=== PATIENT | male | born 1985 | race Caucasian/White ===

== ENCOUNTER → 2022-12-23 14:39 | Outpatient (CLI) | payer OTHER, SELFPAY ==
[2022-12-23 19:34] LABS: Add Manual Diff / Slide Review NO; Basophils Absolute Auto 0 /uL (0-100); Basophils Percent Auto 0.1 % (0-2); Eosinophils Absolute Auto 200 /uL (0-450); Eosinophils Percent Auto 1.4 % (2-4); Hematocrit 49.2 % (41-53); Hemoglobin 17.1 g/dL (13.5-17.5); Lymphocytes Absolute Auto 1800 /uL (1100-4500); Lymphocytes Percent Auto 16.9 % (25-40); Mean Corpuscular HGB Conc 34.8 % (30-36); Mean Corpuscular Hemoglobin 30.5 PG (26-34); Mean Corpuscular Volume 87.6 fL (80-100); Monocytes Absolute Auto 800 /uL (0-900); Neutrophils Absolute Auto 8100 /uL (1500-7000); Neutrophils Percent Auto 74.6 % (50-75); Platelet Count 270 X10^3/uL (150-400); Red Blood Cell Count 5.61 X10^6/uL (4.5-5.9); Red Cell Distribution Width 13.2 % (11.6-14.8); White Blood Cell Count 10.9 X10^3/uL (4.5-11.0)
[2022-12-23 19:44] LABS: BUN Creatinine Ratio 15.3 (6-22); Blood Urea Nitrogen 19 mg/dL (9-20); Calcium 9.2 mg/dL (8.4-10.2); Carbon Dioxide 22 mmol/L (22-32); Chloride 103 mmol/L (98-107); Cholesterol 93 mg/dL (140-199); Estimated Glomerular Filt Rate > 60 mL/min (>60); Glucose 81 mg/dL (70-100); HDL Cholesterol 24 mg/dL (40-60); HEMOLYSIS 19 (0-50); LDL Cholesterol Calculated 51 mg/dL (<100); Potassium 4.4 mmol/L (3.4-5.1); Sodium 138 mmol/L (137-145); Triglycerides 89 mg/dL (35-150)
== END ==
PROVIDERS: PCP Family Medicine; Visit Provider Family Medicine
DX: Z13.1 Encounter for screening for diabetes mellitus (principal); Z13.220 Encounter for screening for lipoid disorders; Z13.6 Encounter for screening for cardiovascular disorders; Z87.898 Personal history of other specified conditions
CPT/HCPCS: 80048; 80061; 85025

== ENCOUNTER → 2023-02-18 13:07 | Outpatient (CLI) | payer OTHER, SELFPAY ==
[2023-02-18 21:48] LABS: Urine N gonorrhoeae NOT DETECTED
[2023-02-18 22:46] LABS: Urine Chlamydia NOT DETECTED
[2023-02-19 21:59] LABS: HIV 1 & 2 Ab/Ag 4th Gen Combo NEGATIVE (NEGATIVE)
[2023-02-20 05:47] LABS: HSV 2 IGG AB < 0.91 index (0.00-0.90); RPR Screen Non Reactive (Non Reactive)
== END ==
PROVIDERS: PCP Family Medicine; Visit Provider Family Medicine
DX: Z20.2 Contact with and (suspected) exposure to infections with a predominantly sexual mode of transmission (principal)
CPT/HCPCS: 86592; 86695; 86696; 87389; 87491; 87591

== ENCOUNTER 2023-12-11 14:30 | Emergency (ER) | payer OTHER, SELFPAY ==
[2023-12-11] VITALS (10 sets, daily range): BP systolic 135–143; BP diastolic 73–82; PULSE 59–85; RESP 15–19; TEMP 36.7; O2SAT 92–100; BMI 26.9
--- NOTE | 2023-12-11 15:11 | ED.FALL ---
HPI - Fall General Chief Complaint: Trauma Stated Complaint: Fall, eye LAC Time Seen by Provider: 12/11/23 15:00 History of Present Illness HPI Narrative: Patient is a 38-year-old male without significant past medical history presenting today after a fall. He reports that he was standing at the top of the stairs going to make some lunch when he fell down 1 stair landing directly on his right buttock but hit his head he has a contusion on his head he is got some lacerations around his eye he thinks he lost consciousness. He is mildly nauseous. He also has a contusion on his chest. He does not remember much she does not think he fell down the rest of the stairs he remembers saying at the top of the stairs and calling or waiting for help. He lives over on the eyelids and brought over for evaluation Related Data Home Medications Medication Instructions Recorded Confirmed No Known Home Medications 12/17/22 12/17/22 Allergies Allergy/AdvReac Type Severity Reaction Status Date / Time Penicillins Allergy Intermediate Rash Verified 12/17/22 08:52 Patient History Family History Father Cancer Social History Smoking Status: Never smoker Smoking Status: Never smoker Exam Initial Vital Signs Initial Vital Signs: Vital Signs Pulse Oximetry 100 12/11/23 14:36 GENERAL: Alert pleasant 38-year-old male HEENT: Head contusion and abrasion noted on right side he has a laceration in right eyebrow along with small laceration inferior and lateral the periorbital area. EYES:EOMI NECK: No vertebral tenderness no step-off CARDIOVASCULAR: Regular rate and rhythm without murmurs, rubs or gallops. RESPIRATORY: Breath sounds equal bilaterally, no wheezes rales or rhonchi. ABDOMEN: Soft, nontender. Normoactive bowel sounds all 4 quadrants. No guarding or rebound. BACK: No vertebral tenderness no step-off EXTREMITIES: Normal range of motion, no clubbing or edema. Neurovascularly intact NEUROLOGICAL: Alert and oriented x4.Normal gait and speech. Cranial nerves II through XII grossly intact. SKIN: Contusion noted on chest abrasion noted on forehead right side with some lacerations around right eye Procedures Laceration Repair Laceration 1: Site: face (eye brow) Side (If applicable): right Size (cm): 4 Description: linear Depth: simple, single layer Local Anesthetic: lidocaine 1% and with epi Amount of anesthesia used (mL): 3 Pre-repair: wound explored, irrigated extensively and deep structures intact Skin layer closed with: nylon Skin layer suture size: 5-0 Number of sutures: 4 Technique: simple, interrupted Laceration 2: Site: face (inferior lateral right eye) Size (cm): 1 Description: linear Depth: simple, single layer Local Anesthetic: lidocaine 1% and with epi Amount of anesthesia used (mL): 1 Pre-repair: wound explored, irrigated extensively and deep structures intact Skin layer closed with: other (chromic gut) Skin layer suture size: 5-0 Number of sutures: 2 Technique: simple, interrupted Course Orders Ordered: ED Orders 12/11/23 15:03 EKG-12 Lead Stat 12/11/23 15:17 CT cervical spine wo con Stat CT chest abd pel w con Stat CT facial bones wo con Stat CT head/brain wo con Stat 12/11/23 15:28 CBC Auto Diff [Complete Blood Count AUTO DIFF] Stat CMP [Comprehensive Metabolic Panel] Stat Discontinued Medications Lidocaine/Epinephrine (Lidocaine 1% W/Epi) 20 ml INJ INTRA-OP ONE Stop: 12/11/23 17:06 Last Admin: 12/11/23 17:50 Dose: 20 ml Documented By: CLARA Vital Signs Vital signs: Vital Signs - 8 hr 12/11/23 14:36 12/11/23 14:37 12/11/23 14:37 Temperature Pulse Rate 59 L Respiratory Rate Blood Pressure 140/80 Pulse Oximetry 100 100 Oxygen Delivery Method Room Air 12/11/23 14:46 12/11/23 15:00 12/11/23 15:00 Temperature 98.1 F Pulse Rate 60 69 Respiratory Rate 16 Blood Pressure 140/80 Pulse Oximetry 100 98 Oxygen Delivery Method Room Air Room Air Room Air 12/11/23 15:18 12/11/23 15:18 12/11/23 15:41 Temperature Pulse Rate 79 78 Respiratory Rate Blood Pressure 143/73 H Pulse Oximetry 100 92 Oxygen Delivery Method Room Air 12/11/23 15:42 12/11/23 15:42 12/11/23 16:00 Temperature Pulse Rate 77 85 Respiratory Rate 15 16 Blood Pressure 141/81 H Pulse Oximetry 100 99 Oxygen Delivery Method Room Air 12/11/23 16:00 12/11/23 16:30 12/11/23 16:30 Temperature Pulse Rate 82 Respiratory Rate Blood Pressure 138/82 135/79 Pulse Oximetry 95 Oxygen Delivery Method Room Air 12/11/23 17:00 12/11/23 17:00 Temperature Pulse Rate 84 Respiratory Rate 19 Blood Pressure 140/80 Pulse Oximetry 97 Oxygen Delivery Method MDM - Fall Lab Data 12/11/23 15:28 12/11/23 15:28 Labs: Lab Results 12/11/23 Range/Units 15:28 WBC 14.9 H (4.5-11.0) X10^3/uL RBC 5.53 (4.5-5.9) X10^6/uL Hgb 16.6 (13.5-17.5) g/dL Hct 48.4 (41-53) % MCV 87.5 (80-100) fL MCH 30.0 (26-34) PG MCHC 34.3 (30-36) % RDW 13.5 (11.6-14.8) % Plt Count 182 (150-400) X10^3/uL Neut % (Auto) 88.0 H (50-75) % Lymph % (Auto) 7.4 L (25-40) % [place] % (Auto) 4.2 (3-14) % Eos % (Auto) 0.2 L (2-4) % Baso % (Auto) 0.2 (0-2) % Neut # (Auto) 71601 H (1432-8735) /uL Lymph # (Auto) 1100 (5770-6661) /uL [place] # (Auto) 600 (0-900) /uL Eos # (Auto) 0 (0-450) /uL Baso # (Auto) 0 (0-100) /uL Sodium 138 (137-145) mmol/L Potassium 3.8 (3.4-5.1) mmol/L Chloride 108 H (98-107) mmol/L Carbon Dioxide 21 L (22-32) mmol/L BUN 22 H (9-20) mg/dL Creatinine 1.03 (0.66-1.25) mg/dL Estimated GFR > 60 (>60) mL/min BUN/Creatinine Ratio 21.4 (6-22) Glucose 131 H (70-100) mg/dL Calcium 9.3 (8.4-10.2) mg/dL Total Bilirubin 2.1 H (0.2-1.3) mg/dL AST 30 (17-59) IU/L ALT 25 (<50) IU/L Alkaline Phosphatase 77 (38-126) U/L Total Protein 7.9 (6.3-8.2) g/dL Albumin 4.5 (3.5-5.0) g/dL Globulin 3.4 (1.7-4.1) g/dL Albumin/Globulin Ratio 1.3 (1.0-2.8) Imaging Data CT - cervical spine: Radiologist's Impression: PROCEDURE: CT CERVICAL SPINE WO CON INDICATIONS: fall TECHNIQUE: Noncontrast 3 mm thick sections acquired from the skull base to the T4 level. Sagittal and coronal reformats were then constructed. For radiation dose reduction, the following was used: automated exposure control, adjustment of mA and/or kV according to patient size. COMPARISON: None. FINDINGS: Image quality: Excellent. Bones: No fractures or dislocations. Visualized superior ribs are intact. Soft tissues: Prevertebral soft tissues are normal in thickness. No paravertebral hematomas. No apical pneumothoraces. IMPRESSION: No trauma found Dictated by: Linwood Hahn M.D. on 12/11/2023 at 16:05 CT scan - chest: Radiologist's Impression: PROCEDURE: CT CHEST ABD PEL W CON INDICATIONS: fall chest contusion right hip pain TECHNIQUE: After the administration of intravenous contrast, 5 mm thick sections acquired from the lung apices to the symphysis. 5 mm coronal and sagittal reformats were performed, with additional 7 mm MIP reformats through the lungs. For radiation dose reduction, the following was used: automated exposure control, adjustment of mA and/or kV according to patient size. COMPARISON: None. FINDINGS: Image quality: Excellent. CHEST: Lower Neck: No enlarged lymph nodes. Thyroid: No thyroid nodules which require sonographic follow up, per consensus guidelines. Axillae: No enlarged lymph nodes. Chest Wall: Unremarkable. Lungs and Pleura: No pneumothorax or pleural effusions. No consolidation or suspicious nodules. Heart: Heart size is normal. No pericardial effusion. Thoracic Vessels: The aorta and pulmonary arteries demonstrate normal size. Mediastinum and Theresa: No enlarged lymph nodes. Esophagus: No wall thickening. No hiatal hernia. ABDOMEN: Liver: No solid mass. Gallbladder: No radiopaque gallstones or wall thickening. Biliary ducts: No biliary dilation. Pancreas: No ductal dilation. Spleen: Size is within normal limits. Adrenal Glands: No adrenal nodules. Kidneys and Ureters: No hydronephrosis. No solid mass. No complex renal cystic lesion which requires follow up. Stomach and Bowel: Normal colonic caliber, without significant wall thickening. Peritoneum: No abnormal intraperitoneal fluid. No free air. Ventral Wall: No significant ventral hernia. Abdominal Nodes: No retroperitoneal or mesenteric adenopathy by size criteria. Vessels: Aorta and inferior vena cava are normal in size. PELVIS: Pelvic Organs: Unremarkable. Bladder: No bladder wall thickening, accounting for underdistention. Pelvic Nodes: No enlarged lymph nodes. Miscellaneous: No inguinal hernias are seen. Bones: No aggressive osseous abnormality. Moderately severe L5-S1 degenerative disc disease. IMPRESSION: No trauma found. Dictated by: Linwood Hahn M.D. on 12/11/2023 at 16:08 CT scan - head: Radiologist's Impression: PROCEDURE: CT HEAD/BRAIN WO CON INDICATIONS: fall TECHNIQUE: Noncontrast 4.5 mm thick angled axial sections acquired from the foramen magnum to the vertex, with coronal and sagittal reformats. For radiation dose reduction, the following was used: automated exposure control, adjustment of mA and/or kV according to patient size. COMPARISON: None. FINDINGS: Image quality: Diagnostic. CSF spaces: Basal cisterns are patent. No extra-axial fluid collections. Ventricles are normal in size and shape. Brain: No midline shift. No intracranial masses or hemorrhage. Phillips-white matter interface is normal. Skull and face: Calvarium and visualized facial bones are intact, without suspicious lesions. Multiple subcutaneous round nodules, nonspecific. Sinuses: Visualized sinuses and mastoids are clear. IMPRESSION: No acute intracranial pathology. Nonspecific subcutaneous scalp lesions. Dictated by: Chino Hsieh M.D. on 12/11/2023 at 16:20 CT Facial: Radiologist's Impression: PROCEDURE: CT FACIAL BONES WO CON INDICATIONS: fall TECHNIQUE: Noncontrast 2.5 mm thick axial images acquired from the mandible through the frontal sinuses, with coronal and sagittal reformatting. For radiation dose reduction, the following was used: automated exposure control, adjustment of mA and/or kV according to patient size. COMPARISON: None. FINDINGS: Image quality: Excellent. Bones and teeth: Orbital roberto are intact. Sinus roberto show no fracture or deformity. Nasal bones and septum are intact. Visualized portions of the mandible demonstrate no fractures or subluxation. Zygomatic arches are intact. Pterygoid plates are intact. Visualized portions of the skull base and auditory canals are intact. Sinuses: Paranasal sinuses are aerated, without fluid levels, mucosal thickening, or mucoceles. Mastoid air cells are aerated. Soft tissues: No edema, masses, or fluid collections. No enlarged lymph nodes. No soft tissue lacerations or debris. Vascular: Visualized vascular structures appear normal in the absence of contrast. Bony vascular foramina and canals are intact. IMPRESSION: Nasal bones bilaterally show nasociliary vascular grooves. No definite osseous injury seen. Dictated by: Linwood Hahn M.D. on 12/11/2023 at 16:05 Approved by: Linwood Hahn M.D. on 12/11/2023 at 16:06 ECG Data Interpretation: Normal sinus rhythm rate 68 ND interval 176 QRS [address] changes or T-wave inversions MDM Narrative Medical decision making narrative: Patient presents today after fall down 1 stair. However his areas are concerning. He has obvious abrasions and contusion along his face he is got 2 lacerations around and he has a contusion on his chest. He has not on any antiplatelet or anticoagulation medication. He is complaining of some mild headache a little bit of nausea but no actual vomiting. Not having any sort of repetitive questioning. Blood work has been reviewed And stable no anemia. Imaging reviewed surprisingly no fracture or abnormality Lacerations have been easily repaired He is offered Zofran to go home but he has no longer nauseous his headache is feeling better. At this time likely has a concussion. Discharge Plan Departure Patient Disposition: Home Clinical Impression: Concussion, Laceration of face Instructions: DI for Concussion, DI for Laceration Repair Activity Restrictions/Additional Instructions: *You have been diagnosed with concussion and facial laceration *What to do: At this time have sutures removed in your eyebrow in about 7 days. The sutures below your eye should dissolve in about 7-10 days. You may apply antibiotic ointment, to the eyebrow but do not apply antibiotic ointment to the lower lid until sutures dissolve. You may notice that you have difficulty with concentrating screens and noise. You may feel nauseous but you should not be vomiting May shower and bathe as normal however no swimming until sutures have been completely removed or dissolved *Continue to take medications as directed Tylenol 1000 mg every 6 hours for [id number] pain Motrin 600 mg every 6 hours for [id number] Antibiotic 1-2 times daily as described above *Follow up with your primary care provider in 2-3 days or call [phone] *Return to ER if you should have increasing headache persistent vomiting redness swelling drainage or any new, worsening or concerning symptoms Prescriptions: No Action No Known Home Medications Referrals: Alonzo Michele MD [Primary Care Provider] - Stand Alone Forms: Patient Portal/API
--- NOTE | 2023-12-11 15:17 | DI.CT.S_ITS ---
PROCEDURE: CT CERVICAL SPINE WO CON INDICATIONS: fall TECHNIQUE: Noncontrast 3 mm thick sections acquired from the skull base to the T4 level. Sagittal and coronal reformats were then constructed. For radiation dose reduction, the following was used: automated exposure control, adjustment of mA and/or kV according to patient size. COMPARISON: None. FINDINGS: Image quality: Excellent. Bones: No fractures or dislocations. Visualized superior ribs are intact. Soft tissues: Prevertebral soft tissues are normal in thickness. No paravertebral hematomas. No apical pneumothoraces. IMPRESSION: No trauma found Dictated by: Linwood Hahn M.D. on 12/11/2023 at 16:05 Approved by: Linwood Hahn M.D. on 12/11/2023 at 16:05
--- NOTE | 2023-12-11 15:17 | DI.CT.S_ITS ---
PROCEDURE: CT FACIAL BONES WO CON INDICATIONS: fall TECHNIQUE: Noncontrast 2.5 mm thick axial images acquired from the mandible through the frontal sinuses, with coronal and sagittal reformatting. For radiation dose reduction, the following was used: automated exposure control, adjustment of mA and/or kV according to patient size. COMPARISON: None. FINDINGS: Image quality: Excellent. Bones and teeth: Orbital roberto are intact. Sinus roberto show no fracture or deformity. Nasal bones and septum are intact. Visualized portions of the mandible demonstrate no fractures or subluxation. Zygomatic arches are intact. Pterygoid plates are intact. Visualized portions of the skull base and auditory canals are intact. Sinuses: Paranasal sinuses are aerated, without fluid levels, mucosal thickening, or mucoceles. Mastoid air cells are aerated. Soft tissues: No edema, masses, or fluid collections. No enlarged lymph nodes. No soft tissue lacerations or debris. Vascular: Visualized vascular structures appear normal in the absence of contrast. Bony vascular foramina and canals are intact. IMPRESSION: Nasal bones bilaterally show nasociliary vascular grooves. No definite osseous injury seen. Dictated by: Linwood Hahn M.D. on 12/11/2023 at 16:05 Approved by: Linwood Hahn M.D. on 12/11/2023 at 16:06
--- NOTE | 2023-12-11 15:17 | DI.CT.S_ITS ---
PROCEDURE: CT HEAD/BRAIN WO CON INDICATIONS: fall TECHNIQUE: Noncontrast 4.5 mm thick angled axial sections acquired from the foramen magnum to the vertex, with coronal and sagittal reformats. For radiation dose reduction, the following was used: automated exposure control, adjustment of mA and/or kV according to patient size. COMPARISON: None. FINDINGS: Image quality: Diagnostic. CSF spaces: Basal cisterns are patent. No extra-axial fluid collections. Ventricles are normal in size and shape. Brain: No midline shift. No intracranial masses or hemorrhage. Phillips-white matter interface is normal. Skull and face: Calvarium and visualized facial bones are intact, without suspicious lesions. Multiple subcutaneous round nodules, nonspecific. Sinuses: Visualized sinuses and mastoids are clear. IMPRESSION: No acute intracranial pathology. Nonspecific subcutaneous scalp lesions. Dictated by: Chino Hsieh M.D. on 12/11/2023 at 16:20 Approved by: Chino Hsieh M.D. on 12/11/2023 at 16:22
--- NOTE | 2023-12-11 15:17 | DI.CT.S_ITS ---
PROCEDURE: CT CHEST ABD PEL W CON INDICATIONS: fall chest contusion right hip pain TECHNIQUE: After the administration of intravenous contrast, 5 mm thick sections acquired from the lung apices to the symphysis. 5 mm coronal and sagittal reformats were performed, with additional 7 mm MIP reformats through the lungs. For radiation dose reduction, the following was used: automated exposure control, adjustment of mA and/or kV according to patient size. COMPARISON: None. FINDINGS: Image quality: Excellent. CHEST: Lower Neck: No enlarged lymph nodes. Thyroid: No thyroid nodules which require sonographic follow up, per consensus guidelines. Axillae: No enlarged lymph nodes. Chest Wall: Unremarkable. Lungs and Pleura: No pneumothorax or pleural effusions. No consolidation or suspicious nodules. Heart: Heart size is normal. No pericardial effusion. Thoracic Vessels: The aorta and pulmonary arteries demonstrate normal size. Mediastinum and Theresa: No enlarged lymph nodes. Esophagus: No wall thickening. No hiatal hernia. ABDOMEN: Liver: No solid mass. Gallbladder: No radiopaque gallstones or wall thickening. Biliary ducts: No biliary dilation. Pancreas: No ductal dilation. Spleen: Size is within normal limits. Adrenal Glands: No adrenal nodules. Kidneys and Ureters: No hydronephrosis. No solid mass. No complex renal cystic lesion which requires follow up. Stomach and Bowel: Normal colonic caliber, without significant wall thickening. Peritoneum: No abnormal intraperitoneal fluid. No free air. Ventral Wall: No significant ventral hernia. Abdominal Nodes: No retroperitoneal or mesenteric adenopathy by size criteria. Vessels: Aorta and inferior vena cava are normal in size. PELVIS: Pelvic Organs: Unremarkable. Bladder: No bladder wall thickening, accounting for underdistention. Pelvic Nodes: No enlarged lymph nodes. Miscellaneous: No inguinal hernias are seen. Bones: No aggressive osseous abnormality. Moderately severe L5-S1 degenerative disc disease. IMPRESSION: No trauma found. Dictated by: Linwood Hahn M.D. on 12/11/2023 at 16:08 Approved by: Linwood Hahn M.D. on 12/11/2023 at 16:11
[2023-12-11 15:38] LABS: Add Manual Diff / Slide Review NO; Basophils Absolute Auto 0 /uL (0-100); Basophils Percent Auto 0.2 % (0-2); Eosinophils Absolute Auto 0 /uL (0-450); Eosinophils Percent Auto 0.2 % (2-4); Hematocrit 48.4 % (41-53); Hemoglobin 16.6 g/dL (13.5-17.5); Lymphocytes Absolute Auto 1100 /uL (1100-4500); Lymphocytes Percent Auto 7.4 % (25-40); Mean Corpuscular HGB Conc 34.3 % (30-36); Mean Corpuscular Volume 87.5 fL (80-100); Monocytes Absolute Auto 600 /uL (0-900); Monocytes Percent Auto 4.2 % (3-14); Neutrophils Absolute Auto 13100 /uL (1500-7000); Platelet Count 182 X10^3/uL (150-400); Red Blood Cell Count 5.53 X10^6/uL (4.5-5.9); Red Cell Distribution Width 13.5 % (11.6-14.8); White Blood Cell Count 14.9 X10^3/uL (4.5-11.0)
[2023-12-11 15:49] LABS: Alanine Aminotransferase 25 IU/L (<50); Albumin 4.5 g/dL (3.5-5.0); Albumin Globulin Ratio 1.3 (1.0-2.8); Alkaline Phosphatase 77 U/L (38-126); Aspartate Aminotransferase 30 IU/L (17-59); BUN Creatinine Ratio 21.4 (6-22); Bilirubin Total 2.1 mg/dL (0.2-1.3); Blood Urea Nitrogen 22 mg/dL (9-20); Calcium 9.3 mg/dL (8.4-10.2); Carbon Dioxide 21 mmol/L (22-32); Chloride 108 mmol/L (98-107); Estimated Glomerular Filt Rate > 60 mL/min (>60); Globulin 3.4 g/dL (1.7-4.1); Glucose 131 mg/dL (70-100); HEMOLYSIS < 15 (0-50); Potassium 3.8 mmol/L (3.4-5.1); Sodium 138 mmol/L (137-145); Total Protein 7.9 g/dL (6.3-8.2)
[2023-12-11] MEDS: LIDOCAINE 1% W/EPI 20 ML INJ (17:50)
== END 2023-12-11 18:17 | disposition home or self-care (01) ==
PROVIDERS: Emergency Provider Emergency Medicine; PCP Family Medicine
DX: S06.0X0A Concussion without loss of consciousness, initial encounter (principal); S01.81XA Laceration without foreign body of other part of head, initial encounter; S20.219A Contusion of unspecified front wall of thorax, initial encounter; R07.9 Chest pain, unspecified; W10.9XXA Fall (on) (from) unspecified stairs and steps, initial encounter
CPT/HCPCS: 12013; 36415; 70450; 70486; 71260; 72125; 74177; 80053; 85025; 93005; 93010; 99284; Q9967